=== PATIENT | male | born 1995 ===

== ENCOUNTER 2021-02-08 14:25 | Inpatient (IN) | payer OTHER ==
[~2021-02-08] VITALS: Ht 177.8 cm; Wt 79.5 kg
--- NOTE | 2021-02-08 17:20 | NUR ---
PATIENT IS A DIRECT ADMIT FROM [facility] WITH A PERF ULCER. A&O. PATIENT HAS HX OF ULCERS. NO C/O PAIN OR NAUSEA AT THIS TIME. PATIENT WAS GIVEN NAUSEA, ACID REDUCING MEDS & IV ABX. PATIENT REPORTS ABD PAIN IS MUCH BETTER. LEFT AC IV TO INT. HEAD TO TOE ASSESSMENT WNL. NO HOME MEDS REPORTED. INDEPENDENT IN ROOM. PATIENT NOTIFIED . ALSO NOTIFIED OF ARRIVAL. ORIENTED TO ROOM. NO OTHER NEEDS AT THIS TIME. AWAITING ORDERS.
[2021-02-08 17:25] VITALS: BP 114/51; PULSE 84; TEMP 99
--- NOTE | 2021-02-08 18:00 | NUR ---
MAKING ROUNDS. SEE ORDERS.
[2021-02-08 20:31] VITALS: BP 114/62; PULSE 105; TEMP 97.8
[2021-02-08 23:33] VITALS: BP 114/58; PULSE 90; TEMP 100.3
--- NOTE | 2021-02-09 00:25 | NUR ---
PATIENT RESTING IN BED ALERT AND ORIENTED X4. C/O HEAD AND BACK PAIN. MORPHINE IV GIVEN ORDERED. IV FLUID STARTED AND IV ABX GIVEN. PATIENT DENIES NAUSEA/VOMING. PATIENT OUT OF BED TOLETERATED. MOVE ALL EXTREMITIES. WILL CONTINUE TO MONITOR.
[2021-02-09 03:48] VITALS: BP 128/67; PULSE 63; TEMP 99.2
[2021-02-09 06:19] LABS: BASO % 0.3 % (0.0-2.0); EOS # 0.6 (0.0-0.7); GRAN # 6.2 (1.4-6.5); GRAN % 69.1 % (42.2-75.2); HEMOGLOBIN 12.1 g/dl (13.5-18.0); LYMPH # 1.2 (1.2-3.4); LYMPH % 12.9 % (20.0-51.0); MEAN CELL VOLUME 91 fl (80.0-100.0); MEAN CORPUSCULAR HEMOGLOBIN 31 pg (27.0-31.0); MEAN CORPUSCULAR HGB CONC 35 g/dl (33.0-37.0); MEAN PLATELET VOLUME 9.8 fl (7.4-10.4); MONO # 0.9 (0.1-0.6); MONO % 10.3 % (1.7-9.3); PLATELET COUNT 248 K/mm3 (130-400); RED BLOOD COUNT 3.87 M/mm3 (4.20-5.60); REDCELL DISTRIBUTION WIDTH-CV 11.8 % (11.5-14.5)
[2021-02-09 06:20] LABS: HEMATOCRIT 35.1 % (42.0-52.0)
[2021-02-09 06:27] LABS: CREATININE, serum 0.96 (0.66-1.25)
[2021-02-09 07:47] VITALS: BP 115/62; PULSE 90; TEMP 99.4
--- NOTE | 2021-02-09 08:00 | NUR ---
PATIENT IS ORIENTED BUT VERY TIRED. PATIENT REPORTS HE DIDN'T SLEEP WELL LAST NIGHT. VSS. C/O PAIN IN BACK RATED AT 5-6 ON PAIN SCALE. GAVE PRN MORPHINE IV. PATIENT ALSO C/O PETERS. GAVE PRN TYLENOL. PATIENT IS NPO WITH SIPS OF WATER. NO C/O N/V AT THIS TIME. IV FLUIDS INFUSING VIA PUMP INTO LEFT AC IV. PATIENT INDEPENDENT IN ROOM AND VOIDING SUFFICENT AMOUNTS. HEAD TO TOE ASSESSMENT COMPLETE. NO OTHER NEEDS AT THIS TIME. CALL LIGHT IN REACH. ROOM LIGHTS TURNED DOWN SO PATIENT CAN REST.
--- NOTE | 2021-02-09 11:59 | NUR ---
First visit from the animal shelter worker. No needs right now.
[2021-02-09 12:18] VITALS: BP 106/60; PULSE 74; TEMP 98.4
[2021-02-09 16:26] VITALS: BP 115/64; PULSE 82; TEMP 98.3
[2021-02-09 20:15] VITALS: BP 110/62; PULSE 72; TEMP 98.4
--- NOTE | 2021-02-09 20:20 | NUR ---
PATIENT RESTING IN BED, ALERT AND ORIENTED X4, DENIES NAUSEA. TOLERATED CLEAR LIQUIDS DIET. PAIN MANAGE WITH TYLENOL.IVF INFUSING. WILL CONTINUE TO MONITOR.
[2021-02-09 23:37] VITALS: BP 112/63; PULSE 83; TEMP 98.8
[2021-02-10 03:41] VITALS: BP 105/57; PULSE 81; TEMP 98
[2021-02-10 07:27] VITALS: BP 107/57; PULSE 77; TEMP 98.7
--- NOTE | 2021-02-10 08:30 | NUR ---
Patient in bed resting. Alert and oriented x 3. Assessment complete. Denies pain at this time. Denies further needs at this time.
[2021-02-10 11:57] VITALS: BP 125/64; PULSE 78; TEMP 97.9
--- NOTE | 2021-02-10 13:23 | NUR ---
Initial visit attempt; Patient sleeping, Chaplalin left card offering God's blessings and the availability of spiritual care at our hospital.
--- NOTE | 2021-02-10 14:21 | NUR ---
JONY met with the patient to discuss discharge plan. The patient just moved to [place] with his , Barb (ph#[phone]). He reports independence with ADLs and does not have any DME. The patient states that he does not have a PCP here yet, but will be getting established at [facility] or a clinic on [address]. He receives his medications on [place]. The patient does not have a DPOA-HC, but he was interested in obtaining a form. JONY provided. The patient plans to return home with his upon discharge. No additional needs at this time. *Discharge plan: home with *
[2021-02-10 16:09] VITALS: BP 106/55; PULSE 64; TEMP 98.2
--- NOTE | 2021-02-10 19:23 | NUR ---
Patient doing well throughout the day, has been up independently in room. IV restarted to left AC, x 1 attempt. Patient has requested tylenol for headach, medication given per orders. Denies pain or further needs at this time. Will report off to cane flume chute operator.
[2021-02-10 19:30] VITALS: BP 114/57; PULSE 74; TEMP 98.4
--- NOTE | 2021-02-10 22:48 | NUR ---
MR vazquez has been great with no complaint. Vss. Will continue to monitor.
[2021-02-10 23:34] VITALS: BP 103/58; PULSE 79; TEMP 98.7
[2021-02-11 03:27] VITALS: BP 118/59; PULSE 57; TEMP 98
[2021-02-11 08:00] VITALS: BP 110/60; PULSE 70; TEMP 97.9
--- NOTE | 2021-02-11 08:00 | NUR ---
Patient in bed resting. Alert and oriented x 3. Assessment complete. Denies pain at this time. States he would like to go home. Denies further needs at this time.
[2021-02-11] MEDS ORDERED: PROTONIX 40MG T40 MG PO ×2 (09:05)
[2021-02-11] MEDS ORDERED: AMOXICILLIN/CLA1 TA1 PO (09:05)
--- NOTE | 2021-02-11 10:00 | NUR ---
Discharge education provided to patient. Educated on calling and scheduling follow up appointment. Educated on all new medications and when to take. All questions answered. INT to left forarm discontinued, catheter tip intact. Denies further needs at this time.
--- NOTE | 2021-02-11 10:15 | NUR ---
Patient out by wheelchair with surgical staff.
== END 2021-02-11 10:15 | disposition home or self-care (01) | DRG 382 ==
LOC: MEDICAL 14:25 → SURG 17:25
PROVIDERS: ADMIT Surgery
DX: K25.1 Acute gastric ulcer with perforation (principal)
CPT/HCPCS: C9113; J0295; J2270; J3480

== ENCOUNTER 2021-05-20 05:52 | Day surgery (SDC) | payer OTHER ==
[~2021-05-20] VITALS: Ht 177.8 cm; Wt 82.7 kg
[~2021-05-20 05:52] MED LIST: AMOXICILLIN/CLA1 TA1 PO; PROTONIX 40MG T40 MG PO
[2021-05-20] MEDS ORDERED: CARAFATE 1GM1 G PO (06:05)
[2021-05-20 06:21] VITALS: BP 135/78; PULSE 71; TEMP 96.8
[2021-05-20] MEDS ORDERED: PROTONIX 40MG T40 MG PO (07:21)
[2021-05-20 07:30] VITALS: BP 109/65; PULSE 78; TEMP 97.3
--- NOTE | 2021-05-20 07:30 | NUR ---
Patient returned to bay 2 via cart. Alert and oriented. Postop vitals started. Apple juice and muffin provided. Call light in reach.
[2021-05-20 07:45] VITALS: BP 135/78; PULSE 68
--- NOTE | 2021-05-20 07:45 | NUR ---
Patient sitting with feet up in recliner. Alert and oriented. Vitals stable. Tolerating food and drink well.
[2021-05-20 08:00] VITALS: BP 108/61; PULSE 51
--- NOTE | 2021-05-20 08:20 | NUR ---
0800-Patient sitting in chair, alert and oriented. Denies discomfort. Vitals stable. Reviewed discharge instruction, patient verbalized understanding. 0815- Discontinued IV with no complications. Instructed to dress and open door when ready for discharge. 0820 -Transported Patient via wheelchair to personal vehicle to be driven home by .
== END 2021-05-20 08:20 | disposition home or self-care (01) ==
LOC: SDCO 05:52
DX: K29.51 Unspecified chronic gastritis with bleeding (principal); K21.00 Gastro-esophageal reflux disease with esophagitis, without bleeding; K25.9 Gastric ulcer, unspecified as acute or chronic, without hemorrhage or perforation; K44.9 Diaphragmatic hernia without obstruction or gangrene; K31.89 Other diseases of stomach and duodenum; R93.5 Abnormal findings on diagnostic imaging of other abdominal regions, including retroperitoneum; G89.29 Other chronic pain; M54.6 Pain in thoracic spine; Z87.11 Personal history of peptic ulcer disease; Z79.899 Other long term (current) drug therapy
CPT/HCPCS: J2405; J2704; J7030

== ENCOUNTER 2021-06-22 06:52 | Day surgery (SDC) | payer OTHER ==
[~2021-06-22] VITALS: Ht 177.8 cm; Wt 81.8 kg
[~2021-06-22 06:52] MED LIST changes: +CARAFATE 1GM1 G PO
--- NOTE | 2021-06-22 07:00 | NUR ---
PATIENT AMBULATED INTO ENDO UNIT WITH STEADY GAIT. NO FAMILY WITH PATIENT. PATIENT STATES TO HAVE A COWORKER CALL TO PICK HIM UP. PATIENT IS ALERT AND ORIENTED X 4. CONSENT EXPLAINED AND PATIENT SIGNED. ASSESSMENT COMPLETED. LUNGS CTA. HEART SOUNDS S1S2 AND REGULAR. BOWEL SOUNDS HEARD. PEDAL PULSES +2.
[2021-06-22 07:24] VITALS: BP 131/80; PULSE 72; TEMP 98.1
[2021-06-22 08:25] VITALS: BP 98/65; PULSE 84; TEMP 97.7
[2021-06-22 08:40] VITALS: BP 99/71; PULSE 77
[2021-06-22 08:55] VITALS: BP 98/65; PULSE 84
--- NOTE | 2021-06-22 09:08 | NUR ---
0825- Pt returns from endo procedure via cart to GI [place] [facility]. Pt ambulates from cart to recliner with RN assist. Monitors on and alarms set. Call light within reach. Report received from KENN Herrera. Pt alert and oriented. Pt requests water and muffin. Pt denies any pain or nausea. 0840- Pt taking food and drink well. No complications noted. Dr in to speak with patient. 0855- Discharge instructions given to pt. All questions answered to patient satisfaction. Handed to pt education material and discharge information. 0908- Pt transferred out of the hospital via wheelchair, to private vehicle driven by friend.
== END 2021-06-22 09:08 | disposition home or self-care (01) ==
LOC: SDCO 06:52
DX: K25.9 Gastric ulcer, unspecified as acute or chronic, without hemorrhage or perforation (principal); K62.89 Other specified diseases of anus and rectum; K20.0 Eosinophilic esophagitis; K44.9 Diaphragmatic hernia without obstruction or gangrene; K59.00 Constipation, unspecified; R19.5 Other fecal abnormalities; K57.30 Diverticulosis of large intestine without perforation or abscess without bleeding; G89.29 Other chronic pain; M54.9 Dorsalgia, unspecified; Z87.11 Personal history of peptic ulcer disease
CPT/HCPCS: J2704; J7030

== ENCOUNTER 2021-08-12 08:13 | Day surgery (SDC) | payer OTHER ==
[~2021-08-12] VITALS: Ht 177.8 cm; Wt 83.6 kg
--- NOTE | 2021-08-12 08:40 | NUR ---
26 Year old patient admitted to bay #8 via ambulation and no use of assistive devices. Procedure verified and consent signed. Medications and HX reviewed. First and last name + verified. Vitals obtained. Patient changed into a clean gown. Warm blanket provided. Call montelongo is at bedside. Non-slip socks are on. Physical assessment completed, see physical assessment. IV started in R hand on first attempt with 20G. IVF infusing without difficulty.
[2021-08-12 08:52] VITALS: BP 125/76; PULSE 65; TEMP 98.4
[2021-08-12 10:05] VITALS: BP 96/52; PULSE 64; TEMP 97.6
--- NOTE | 2021-08-12 10:05 | NUR ---
Pt to GI bay 6 via cart from ENDO. Pt awake and alert. Pt ambulates to recliner with stand by assistance. Pt denies pain or nausea. Apple juice and muffin given per pt rewquest. Will continue to monitor.
[2021-08-12 10:20] VITALS: BP 110/63; PULSE 63
--- NOTE | 2021-08-12 10:20 | NUR ---
Pt continues to rest. Tolerating food and fluids without difficulties. Will continue to monitor. Call light within reach.
[2021-08-12 10:35] VITALS: BP 110/61; PULSE 57
--- NOTE | 2021-08-12 10:35 | NUR ---
Pt continues to rest. Denies needs.
--- NOTE | 2021-08-12 10:40 | NUR ---
Discharge instructions reviewed. Pt voices understanding. IV site discontinued with all parts intact. Pt up to dress. Call light within reach.
--- NOTE | 2021-08-12 10:50 | NUR ---
Pt escorted to private car via wheel chair. Pt accompanied home by his .
== END 2021-08-12 10:50 | disposition home or self-care (01) ==
LOC: SDCO 08:13
DX: K20.0 Eosinophilic esophagitis (principal); K44.9 Diaphragmatic hernia without obstruction or gangrene; K52.81 Eosinophilic gastritis or gastroenteritis; K27.9 Peptic ulcer, site unspecified, unspecified as acute or chronic, without hemorrhage or perforation; F17.290 Nicotine dependence, other tobacco product, uncomplicated; Z79.899 Other long term (current) drug therapy
CPT/HCPCS: J2704; J7120

== ENCOUNTER 2024-06-13 12:28 | Day surgery (SDC) | payer OTHER ==
[~2024-06-13] VITALS: Ht 175.3 cm; Wt 84.5 kg
[2024-06-13 12:45] VITALS: BP 123/70; PULSE 78; TEMP 98.1
[2024-06-13] MEDS ORDERED: PROTONIX 40MG T40 MG PO (12:45)
[2024-06-13] MEDS ORDERED: Ondansetron 4 MG/2 ML VIAL IV PRN ×3 (13:00→14:00)
[2024-06-13] MEDS ORDERED: Ondansetron 4 MG/2 ML VIAL ONE (13:02)
[2024-06-13] MEDS ORDERED: Midazolam 2 MG/2 ML VIAL ONE (13:02)
[2024-06-13] MEDS ORDERED: Rocuronium 50 MG/5 ML Multi-Dose VIAL ONE (13:02)
[2024-06-13] MEDS ORDERED: fentaNYL 50 MCG/ML 2 ML VIAL ONE (13:02)
[2024-06-13] MEDS ORDERED: Lidocaine PF 2% (20 MG/ML) 5 ML VIAL ONE (13:02)
[2024-06-13] MEDS ORDERED: dexAMETHasone 10 MG/ML VIAL ONE (13:02)
[2024-06-13] MEDS ORDERED: Succinylcholine PF 200 MG/10 ML SYRINGE IV ONE (13:02)
[2024-06-13] MEDS ORDERED: LR 1,000 ML IV SCH (13:03)
--- NOTE | 2024-06-13 13:11 | NUR ---
The patient ambulated back to [place] 2 independently using a steady gait and appeared to tolerate the activity well. Vital signs obtained. Consent signed. The patient had a 20G INT in place on admission which flushes easily with good blood return, LR infusing without difficulty. Assessment completed. Home medications reconcilled. Warm blanket provided. Denies any further needs at this time.
[2024-06-13] MEDS ORDERED: droPERidol 2.5 MG/ML 2 ML VIAL IV PRN (13:15)
[2024-06-13] MEDS ORDERED: fentaNYL 50 MCG/ML 1 ML SYRINGE/VIAL [PACU/SDC ONLY] IV PRN (13:15)
[2024-06-13] MEDS ORDERED: HYDROmorphone 1 MG/1 ML SYRINGE [PACU/SDC ONLY] IV PRN (13:15)
[2024-06-13] MEDS ORDERED: Ketorolac 30 MG/ML VIAL IV PRN (13:15)
[2024-06-13] MEDS ORDERED: hydrALAZINE 20 MG/ML 1 ML VIAL IV PRN (13:15)
[2024-06-13 14:22] VITALS: BP 111/74; PULSE 78; TEMP 97.7
--- NOTE | 2024-06-13 14:22 | NUR ---
The patient arrived back to [place] 2 from the recovery room at this time. The patient appears alert and oriented and denies any pain or nausea at this time. Post procedure vital signs were started at this time. The patient agrees to try some apple juice at this time. Report was obtained from Dmitri Almaguer RN. The patient denies any further needs at this time.
[2024-06-13 14:37] VITALS: BP 120/73; PULSE 68
--- NOTE | 2024-06-13 14:37 | NUR ---
The patient appears to be tolerating the juice well. Post procedure vital signs appear stable. The patient is going to text his and have her come pick him up in 20 minutes at the emergency department entrance.
[2024-06-13 14:50] VITALS: BP 109/68; PULSE 68
--- NOTE | 2024-06-13 14:50 | NUR ---
Discharge instructions were reviewed with the patient at this time. He verbalized understanding and has no questions for the nurse at this time. The patient's IV to his right anecubital was removed and a pressure dressing was applied to the site. The nurse instructed the patient to get dressed and notify the staff when he is ready to be escorted out.
--- NOTE | 2024-06-13 15:00 | NUR ---
The patient was escorted out via wheelchair to a private vehicle by [employer] scheduler. The patient's is present to drive him home. The patient's belongings and discharge paperwork were sent with him.
== END 2024-06-13 15:00 | disposition home or self-care (01) ==
LOC: SDCO 12:28
DX: T18.128A Food in esophagus causing other injury, initial encounter (principal); K22.11 Ulcer of esophagus with bleeding; K44.9 Diaphragmatic hernia without obstruction or gangrene; Z79.899 Other long term (current) drug therapy; Z87.11 Personal history of peptic ulcer disease; W44.F3XA Food entering into or through a natural orifice, initial encounter
CPT/HCPCS: J1100; J2250; J2405; J2704; J3010; J7120